=== PATIENT | female | born 1985 | race Caucasian/White ===

== ENCOUNTER → 2016-07-13 | Day surgery (SDC) | payer BC ==
[2016-07-07 08:26] VITALS: Ht 157.5 cm; Wt 68.2 kg
[~2016-07-13] VITALS: Ht 157.5 cm; Wt 68.2 kg
[~2016-07-13] MED LIST: ATROPINE SULFATE 0.1 MG/ML 5ML SYR IV PRN; BCPILLS PO; BUPIVACAINE/EPINEPHRINE 0.25% 1:200,000 30 ML VIAL ONE; CEFAZOLIN 2000 MG/60 ML D5W IV SCH; DEXAMETHASONE SOD INJ 4 MG/ML VIAL ONE; EpHEDrine SULFATE INJ 50 MG/ML AMP IV PRN; FENTANYL CITRATE INJ 50 MCG/1 ML 2 ML VIAL IV PRN; FENTANYL CITRATE INJ 50 MCG/1 ML 2 ML VIAL ONE; HYDR-5688 PO; HYDROCODONE/ACETAMOPHEN 5/325MG TAB PO PRN; LACTATED RINGER'S 1000ML 1,000 ML IV SCH; LIDOCAINE HCL 2% 2 ML VIAL (20MG/ML) ONE; LORA-741 PO; MIDAZOLAM HCL 1 MG/ML 2ML VIAL ONE; ONDANSETRON INJ 2 MG/ML 2 ML VIAL IV PRN; ONDANSETRON INJ 2 MG/ML 2 ML VIAL ONE; PROPOFOL IV EMULSION 10 MG/ML 20 ML VIAL IV ONE; SODIUM CHLORIDE 0.9% 1000ML 1,000 ML IV SCH
--- NOTE | 2016-07-13 07:47 | History & Physical Bridge - [place] ---
H&P Re-Evaluation Bridge Note: I have examined the patient, reviewed the History & Physical and in the interval since the performance of the History & Physical I have noted the following changes of clinical significance: No changes noted
--- NOTE | 2016-07-13 08:35 | Discharge Instructions-SurgCtr ---
Discharge Instructions Visit Reason for Visit: Left Cubital Tunnel Syndrome Discharge Discharge Diagnosis / Problem: SAME ABOVE Discharge Goals Goal(s): Decrease discomfort, Improve function Activity Recommendations Activity Limitations: as noted below Lifting Limitations: until after follow-up appointment Exercise/Sports Limitations: until after follow-up appointment Shower/Bathe: tomorrow Driving or Machine Use: resume 1 day after discharge Anesthesia . Post Anesthesia Instructions: If you have had General Anesthesia or IV Sedation: * Do not drive today. * Resume driving when surgeon permits. * Do not make important decisions or sign legal documents today. * Call surgeon for: 1. Temperature elevations greater than 101 degrees F. 2. Uncontrollable pain. 3. Excessive bleeding. 4. Persistent nausea and vomiting. 5. Medication intolerance (nausea, vomiting or rash). * For nausea and vomiting use only clear liquids such as: tea, soda, bouillon until nausea subsides, then gradually increase diet as tolerated. * If you have any concerns or questions, call your surgeon's office. If physician is unavailable and it is an emergency, call 911 or go to the nearest emergency room. . Instructions / Follow-Up Instructions / Follow-Up MEDICATIONS: * Resume previous medications unless instructed otherwise by your surgeon. * Always take pain medication on a full stomach or with food to avoid upset stomach. * Do not drink alcohol or drive while taking narcotics. * Ibuprofen or Tylenol may be taken if narcotic not needed. SPECIAL CARE INSTRUCTIONS: __ None _X_ Keep extremity elevated and iced x 48 hours; apply ice 20-30 minutes 8-10 times/day. May remove at night. __ Sling __24 hrs/day __ Remove at night __ Shoulder Immobilizer __ 24 hrs/day __ Remove at night _X_ Dressing __ Maintain until seen in office, may shower with plastic over site _X_ Remove dressings in 24-48 hours and then may shower _X_ Cover incisions with band-aids after showering __ Do not remove steri-strips Call physician if chills or temperature rises above 102 degrees or pain unrelieved by prescribed pain medications at . . Diet Recommendations Home Diet: no limitations Fluid Restriction: None Procedures Procedures Performed: Left Cubital Tunnel Release Pending Studies Studies pending at discharge: no Work Instructions Return To Work: after follow-up (OR SOONER IF NOT REQUIRED TO LIFT) Lifting Limitations: no more than 10 pounds (LIMITED LIFTING WITH LEFT ARM ) Medical Emergencies . Who to Call and When: Medical Emergencies: If at any time you feel your situation is an emergency, please call 911 immediately. . Non-Emergent Contact Non-Emergency issues call your: Primary Care Provider Call Non-Emergent contact if: you have a fever, temperature is above 101.5 . . "Provider Documentation" section prepared by Kenny Landis.
--- NOTE | 2016-07-13 08:42 | [facility] Post Operative Brief Note ---
Immediate Operative Summary Operative Date Jul 13, 2016. Pre-Operative Diagnosis Left Cubital Tunnel Syndrome Post-Operative Diagnosis Same Procedure(s) Performed Left Cubital Tunnel Release Surgeon Dr. Sunny Singletary Motorcycle Riding Instructor Surgeon(s) Suzette Landis PA-C Estimated Blood Loss 5 cc Findings as above Specimens None Complication(s) None Disposition Recovery Room / PACU
--- NOTE | 2016-07-13 08:48 | OPERATIVE REPORT ---
DATE OF OPERATION: 07/13/2016 PREOPERATIVE DIAGNOSIS: Cubital tunnel syndrome of the left elbow. POSTOPERATIVE DIAGNOSIS: Same. PROCEDURE: Open cubital tunnel release in situ. SURGEON: Dr. Gagan Singletary. ANILINE PRESS WORKER: Adalberto Landis PA-C, whose assistance was necessary for helping with retraction. ANESTHESIA: General. COMPLICATION: None. CONDITION: Stable to PACU. INDICATIONS: Lilli is a pleasant 30-year-old female who presented to my office with increasing paresthesias in the ulnar nerve distribution of her left hand. It got to the point where the paresthesias were constant. EMG study showed cubital tunnel syndrome of the left elbow. After failing conservative treatment, she elected to undergo open release in situ. On 07/13/2016, she arrived at [facility] for the above procedure. She was seen in the preoperative holding area and the operative extremity was identified and signed. She was given a preoperative antibiotic, taken back to the operating room, laid on the table in supine position and put under general anesthesia. Her left elbow was prepped and draped in sterile fashion. Timeout was done, and the patient and operative extremity was properly identified. A curvilinear incision was made directly over the cubital tunnel. Dissection was taken down through the fascia and Hunter's fascia was exposed. Tenotomy scissors were then used to do a complete release of the fascia proximally and distally through the flexor pronator mass. Complete resection was checked both proximally and distally. There was a rather large motor branch of the ulnar nerve extending into the ulnaris. After flexion of the elbow, the nerve did not subluxate past the medial epicondyle. The wound was then irrigated and injected with 20 mL of Marcaine with epinephrine. The tourniquet was deflated. Hemostasis was easily controlled. The wound was then closed with 3-0 Vicryl and a 4-0 nylon mattress suture. She was then placed in a soft dressing and taken to the postanesthesia care unit in stable condition. She tolerated the procedure well. I attest to the content of the Intraoperative Record and any orders documented therein. Any exceptio ns are noted below.
--- NOTE | 2016-07-13 09:00 | Anesthesia Progress Nt - [facility] ---
Anesthesia Post Op Note Date & Time Jul 13, 2016 at 09:00 Vital Signs Pain Intensity: 0 Vital Signs Past 12 Hours Date Time Temp Pulse Resp B/P Pulse Ox O2 Delivery O2 Flow Rate FiO2 07/13/16 08:32 36.4 71 16 107/51 98 Diffusion Mask 8 07/13/16 07:39 36.8 75 16 130/76 98 Room Air Notes Mental Status: alert / awake / arousable, participated in evaluation Pt Amnestic to Procedure: Yes Nausea / Vomiting: adequately controlled Pain: adequately controlled Airway Patency, RR, SpO2: stable & adequate BP & HR: stable & adequate Hydration State: stable & adequate Anesthetic Complications: no major complications apparent
[2016-07-13 09:58] VITALS: BP 116/76; PULSE 80; TEMP 36.7; O2SAT 98
== END | disposition home or self-care (01) ==
LOC: X.SURG 07:32
PROVIDERS: ATTEND Orthopaedic Surgery
DX: G56.22 Lesion of ulnar nerve, left upper limb (principal); E78.5 Hyperlipidemia, unspecified; Z98.890 Other specified postprocedural states; Z80.8 Family history of malignant neoplasm of other organs or systems

== ENCOUNTER → 2016-08-29 | Outpatient (CLI) | payer BC ==
[~2016-08-29] MED LIST changes: -ATROPINE SULFATE 0.1 MG/ML 5ML SYR IV PRN; -BUPIVACAINE/EPINEPHRINE 0.25% 1:200,000 30 ML VIAL ONE; -CEFAZOLIN 2000 MG/60 ML D5W IV SCH; -DEXAMETHASONE SOD INJ 4 MG/ML VIAL ONE; -EpHEDrine SULFATE INJ 50 MG/ML AMP IV PRN; -FENTANYL CITRATE INJ 50 MCG/1 ML 2 ML VIAL IV PRN; -FENTANYL CITRATE INJ 50 MCG/1 ML 2 ML VIAL ONE; -HYDROCODONE/ACETAMOPHEN 5/325MG TAB PO PRN; -LACTATED RINGER'S 1000ML 1,000 ML IV SCH; -LIDOCAINE HCL 2% 2 ML VIAL (20MG/ML) ONE; -MIDAZOLAM HCL 1 MG/ML 2ML VIAL ONE; -ONDANSETRON INJ 2 MG/ML 2 ML VIAL IV PRN; -ONDANSETRON INJ 2 MG/ML 2 ML VIAL ONE; -PROPOFOL IV EMULSION 10 MG/ML 20 ML VIAL IV ONE; -SODIUM CHLORIDE 0.9% 1000ML 1,000 ML IV SCH
== END | disposition home or self-care (01) ==
LOC: C.PAPS 09:59
PROVIDERS: ATTEND Physician Assistant
DX: Z01.419 Encounter for gynecological examination (general) (routine) without abnormal findings (principal)

== ENCOUNTER → 2017-01-01 | Outpatient (CLI) | payer BC ==
--- NOTE | 2017-01-01 10:11 | DIAGNOSTIC IMAGING REPORT ---
CHEST 2 VIEWS ROUTINE CLINICAL HISTORY: 31 years-old Female presenting with COUGH. TECHNIQUE: PA and lateral views of the chest were obtained. COMPARISON: None. FINDINGS: Cardiomediastinal silhouette normal. Lungs and pleural spaces clear. Osseous structures and upper abdomen normal. IMPRESSION: 1. No acute cardiopulmonary disease. Electronically signed by: Luis Felipe Cole M.D. 01/01/2017 10:10 AM Dictated Date/Time: 01/01/2017 10:09 AM
== END | disposition home or self-care (01) ==
LOC: C.RAD1850 09:56
PROVIDERS: ATTEND Family Medicine Hospice and Palliative Medicine
DX: R05 Cough (principal)

== ENCOUNTER → 2017-02-07 | Outpatient (CLI) | payer BC ==
[~2017-02-07] MED LIST changes: -HYDR-5688 PO
[2017-02-07 18:20] LABS: URINE APPEARANCE CLEAR (CLEAR); URINE BILIRUBIN NEG (NEG); URINE COLOR YELLOW; URINE NITRITE NEG (NEG); URINE PH 5.5 (4.5-7.5); URINE SPECIFIC GRAVITY 1.013 (1.000-1.030); UROBILINOGEN NEG (NEG)
[2017-02-07 18:22] LABS: MANUAL MICROSCOPIC REQUIRED? NO; REVIEW REQ? NO
[2017-02-10 11:12] LABS: CHLAMYDIA TRACH RNA*** NOT DETECTED (NOT DETECTED); GC (NEIS GONORRHOEAE)RNA** NOT DETECTED (NOT DETECTED)
== END | disposition home or self-care (01) ==
LOC: C.LABSPEC 11:19
PROVIDERS: ATTEND Obstetrics & Gynecology
DX: Z34.81 Encounter for supervision of other normal pregnancy, first trimester (principal)

== ENCOUNTER → 2017-02-26 | Outpatient (CLI) | payer BC ==
[2017-02-26 16:06] LABS: BASO % 0.2 %; BASO ABS # 0.02 K/uL (0-0.2); COMPLETE YES; HEMATOCRIT 37.2 % (37-47); IG% 0.3 %; LYMPH % 17.8 %; LYMPH ABS # 1.62 K/uL (1.2-3.4); MEAN CELL VOLUME 87.9 fL (80-100); MEAN CORPUSCULAR HEMOGLOBIN 30.7 pg (25-34); MEAN CORPUSCULAR HGB CONC 34.9 g/dl (32-36); MEAN PLATELET VOLUME 9.4 fL (7.4-10.4); MONO % 6.9 %; NEUT % 71.8 %; PLATELET COUNT 251 K/uL (130-400); RED BLOOD COUNT 4.23 M/uL (4.2-5.4); WHITE BLOOD COUNT 9.11 K/uL (4.8-10.8)
== END | disposition home or self-care (01) ==
LOC: C.LAB1850 14:37
PROVIDERS: ATTEND Obstetrics & Gynecology
DX: Z34.81 Encounter for supervision of other normal pregnancy, first trimester (principal)

== ENCOUNTER → 2017-03-29 | Outpatient (CLI) | payer BC ==
[2017-03-29 12:15] LABS: GTGD 50 Grams
== END | disposition home or self-care (01) ==
LOC: C.LAB1850 10:37
PROVIDERS: ATTEND Obstetrics & Gynecology
DX: Z34.82 Encounter for supervision of other normal pregnancy, second trimester (principal); Z3A.00 Weeks of gestation of pregnancy not specified

== ENCOUNTER → 2017-06-21 | Outpatient (CLI) | payer OTHER ==
[2017-06-21 12:29] LABS: HEMATOCRIT 36.8 % (37-47); HEMOGLOBIN 12.3 g/dL (12.0-16.0)
== END | disposition home or self-care (01) ==
LOC: C.LAB1850 10:59
PROVIDERS: ATTEND Obstetrics & Gynecology
DX: Z34.82 Encounter for supervision of other normal pregnancy, second trimester (principal)

== ENCOUNTER → 2017-08-16 | Outpatient (CLI) | payer OTHER | END | disposition home or self-care (01) | LOC: C.LABSPEC 16:11 | PROVIDERS: ATTEND Obstetrics & Gynecology | DX: Z34.83 Encounter for supervision of other normal pregnancy, third trimester (principal) ==

== ENCOUNTER 2017-09-07 03:00 | Inpatient (IN) | payer OTHER ==
[2017-09-06 13:08] VITALS: BMI 35.0
--- NOTE | 2017-09-06 13:23 | HISTORY & PHYSICAL EXAMINATION ---
DATE OF ADMISSION: 09/07/2017 PRINCIPAL DIAGNOSES: Intrauterine at 39 weeks and prior section x2. PRINCIPAL PROCEDURE: Repeat low transverse section. HISTORY OF PRESENT ILLNESS: The patient is a 32-year-old 3, para 2-0-0-2, white female, EDC of 09/12/2017, who presents for repeat section at 39 weeks. Her first section was done because of intolerance of labor. She had a repeat section in 2014, which was complicated by a hemorrhage, requiring a Bakri balloon. This has been relatively uncomplicated. She is now scheduled for a repeat section. She understands the risks of procedure and is willing to proceed. PAST MEDICAL HISTORY: Significant for a history of C. diff in the past. PAST SURGICAL HISTORY: Left arm surgery x2, wisdom teeth removed and section x2. ALLERGIES: She has no known drug allergies. MEDICATIONS: vitamins. OBSTETRICAL AND GYNECOLOGICAL HISTORY: Periods are every 28 days. Pap smears have been within normal limits. No history of PID, VD or herpes. In 2011, she had a primary section for delivery of an 8 pound 11 ounce viable female infant because of intolerance of labor. In 2014, she had a repeat section with delivery of a 9 pound 13 ounce viable female, which was complicated by the hemorrhaging, requiring a Bakri balloon. HISTORY: Blood type is A positive. Antibody screen is negative. Rubella is immune. RPR is nonreactive. HIV is negative. Hepatitis B is negative. One-hour Glucolas have been within normal limits. Chlamydia and GC are negative. Anatomy was complete and initial low lying placenta at 20 weeks resolved at 32 weeks. Hemoglobin at 28 weeks is 12.3 and hematocrit 36.8. GBS is negative. An anatomy scan was within normal limits. SOCIAL HISTORY: She does not smoke or drink. FAMILY HISTORY: Noncontributory. PHYSICAL EXAMINATION: VITAL SIGNS: Blood pressure is 100/60. GENERAL: She is a well-nourished and well developed white female in no apparent distress. LUNGS: Clear to auscultation. HEART: Regular rate and rhythm. No murmurs or gallops. ABDOMEN: Gravid and fundal height is measuring 37 cm. There is no hepatosplenomegaly or other masses palpable. She has a well-healed low transverse skin incision. EXTREMITIES: Without calf tenderness. There is trace edema present. ASSESSMENT: A 32-year-old with a prior section x2, now requesting repeat section at 39+ weeks. Please see the orders for further directions. We were well aware of the hemorrhage after her last delivery and will be prepared for this possibility with this section. PRAVEEN
[2017-09-06 14:58] LABS: BASO % 0.2 %; BASO ABS # 0.02 K/uL (0-0.2); EOS % 0.3 %; EOS ABS # 0.03 K/uL (0-0.5); HEMATOCRIT 35.1 % (37-47); HEMOGLOBIN 11.4 g/dL (12.0-16.0); IG# 0.13 K/uL (0.00-0.02); MEAN CELL VOLUME 77.8 fL (80-100); MEAN CORPUSCULAR HEMOGLOBIN 25.3 pg (25-34); MEAN CORPUSCULAR HGB CONC 32.5 g/dl (32-36); MEAN PLATELET VOLUME 9.1 fL (7.4-10.4); MONO % 6.5 %; MONO ABS # 0.69 K/uL (0.11-0.59); NEUT % 75.8 %; NEUT ABS # 8.04 K/uL (1.4-6.5); PLATELET COUNT 239 K/uL (130-400); RED CELL DISTRIBUTION WIDTH SD 42.6 fL (36.4-46.3); WHITE BLOOD COUNT 10.61 K/uL (4.8-10.8)
[~2017-09-07] VITALS: Ht 157.5 cm; Wt 86.3 kg
[2017-09-07] VITALS (11 sets, daily range): BP systolic 102–125; BP diastolic 66–79; PULSE 83–88; TEMP 36.8–37.5; O2SAT 97–100; Ht 157.5 cm; Wt 86.3 kg
[~2017-09-07 03:00] MED LIST changes: -BCPILLS PO; +PRENTAB26 PO
[2017-09-07] MEDS ORDERED: LACTATED RINGER'S 1000ML 1,000 ML IV SCH ×2 (05:45→06:00)
[2017-09-07] MEDS ORDERED: CITRIC ACID/SODIUM CITRATE 15 ML UDC PO ONE (05:45)
[2017-09-07] MEDS ORDERED: CEFAZOLIN IV 2,000 MG in SYRINGE 0 ML IV SCH (06:00)
[2017-09-07] MEDS ORDERED: CITRIC ACID/SODIUM CITRATE 15 ML UDC PO SCH (06:00)
[2017-09-07 06:23] LABS: BASO % 0.2 %; BASO ABS # 0.02 K/uL (0-0.2); EOS % 0.6 %; EOS ABS # 0.05 K/uL (0-0.5); HEMATOCRIT 34.6 % (37-47); HEMOGLOBIN 11.3 g/dL (12.0-16.0); IG# 0.11 K/uL (0.00-0.02); LYMPH % 18.8 %; LYMPH ABS # 1.68 K/uL (1.2-3.4); MEAN CELL VOLUME 77.8 fL (80-100); MEAN CORPUSCULAR HEMOGLOBIN 25.4 pg (25-34); MEAN PLATELET VOLUME 9.4 fL (7.4-10.4); MONO % 8.2 %; MONO ABS # 0.73 K/uL (0.11-0.59); NEUT ABS # 6.33 K/uL (1.4-6.5); NUCLEATED RED BLOOD CELL ABS 0.02 K/uL (0-0); PLATELET COUNT 236 K/uL (130-400); RED CELL DISTRIBUTION WIDTH CV 14.9 % (11.5-14.5); RED CELL DISTRIBUTION WIDTH SD 42.5 fL (36.4-46.3); WHITE BLOOD COUNT 8.92 K/uL (4.8-10.8)
[2017-09-07 06:28] LABS: MEAN CORPUSCULAR HGB CONC 32.7 g/dl (32-36)
[2017-09-07] MEDS ORDERED: LACTATED RINGER'S 1000ML 500 ML IV PRN (07:52)
[2017-09-07] MEDS ORDERED: NALOXONE HCL INJ 1 MG in SODIUM CHLORIDE 0.9% 1000ML 1,000 ML IV PRN (07:52)
[2017-09-07] MEDS ORDERED: SODIUM CHLORIDE 0.9% 1000ML 1,000 ML IV PRN (07:52)
[2017-09-07] MEDS ORDERED: NALOXONE HCL INJ 0.08 MG in SYRINGE 1.8 ML IV PRN (07:52)
[2017-09-07] MEDS ORDERED: OXYTOCIN INJ 10 UNITS/ML VIAL ONE ×3 (07:58→09:30)
[2017-09-07] MEDS ORDERED: MoRPHine SULFATE PF 1 MG/ML 10 ML AMP/VIAL ONE (07:59)
[2017-09-07] MEDS ORDERED: DiphenhydrAMINE HCL 50 MG/ML VIAL IV PRN (08:00)
[2017-09-07] MEDS ORDERED: EpHEDrine SULFATE INJ 50 MG/ML AMP IV PRN (08:00)
[2017-09-07] MEDS ORDERED: ONDANSETRON INJ 2 MG/ML 2 ML VIAL IV PRN (08:00)
[2017-09-07] MEDS ORDERED: MoRPHine SULFATE PF 1 MG/ML 10 ML AMP/VIAL EPI PRN (08:00)
[2017-09-07] MEDS ORDERED: NO NARCOTICS OR SEDATIVES SCH (08:00)
[2017-09-07] MEDS ORDERED: MoRPHine SULFATE 2 MG/ML CARP IV PRN (08:00)
[2017-09-07] MEDS ORDERED: DC INTRASPINAL MORPHINE SCH (08:00)
[2017-09-07] MEDS ORDERED: NALOXONE HCL 0.4 MG/1 ML VIAL/CARP IV PRN (08:00)
[2017-09-07] MEDS ORDERED: KETOROLAC TROMETHAMINE 30 MG/ML VIAL IV. PRN (08:00)
[2017-09-07] MEDS ORDERED: NALBUPHINE HCL INJ 10 MG/ML AMP IV PRN (08:00)
[2017-09-07] MEDS ORDERED: MIDAZOLAM HCL 1 MG/ML 2ML VIAL ONE (08:49)
[2017-09-07] MEDS ORDERED: OXYTOCIN INJ 10 UNITS/ML VIAL IM ONE (08:57)
[2017-09-07] MEDS ORDERED: LANOLIN OINT EXT PRN (09:30)
[2017-09-07] MEDS ORDERED: KETOROLAC TROMETHAMINE 30 MG/ML VIAL ONE (09:30)
[2017-09-07] MEDS ORDERED: DC PCA PRN (09:30)
--- NOTE | 2017-09-07 09:38 | [facility] Post Operative Brief Note ---
Immediate Operative Summary Operative Date Sep 07, 2017. Pre-Operative Diagnosis IUP at 39 weeks prior C/S x2 transverse lie Post-Operative Diagnosis Same Procedure(s) Performed Lower Uterine Transverse Repeat Caesarean Section for the of a live female infant at [address]. Surgeon Dr[address] Staci Gonzalez Computer Designer Surgeon(s) Dr. Patricio Estimated Blood Loss 800CC Findings Consistent with Post-Op Diagnosis Fluids (cc crystalloids) 1100 Specimens Placenta: Hold Cord blood obtained Drains Mccullough to straight drainage- clear urine at end of case Anesthesia Type Spinal Complication(s) none Disposition Accompanied Pt To Recover: yes Disposition: L&D
--- NOTE | 2017-09-07 09:49 | Anesthesiology Progress Note ---
Anesthesia Post Op Note Date & Time Sep 07, 2017 at 09:49 Notes Mental Status: alert / awake / arousable, participated in evaluation Pt Amnestic to Procedure: Yes Nausea / Vomiting: adequately controlled Pain: adequately controlled Airway Patency, RR, SpO2: stable & adequate BP & HR: stable & adequate Hydration State: stable & adequate Anesthetic Complications: no major complications apparent
[2017-09-07] MEDS ORDERED: OXYTOCIN INJ 20 UNITS in LACTATED RINGER'S 1000ML 1,000 ML IV SCH (10:00)
--- NOTE | 2017-09-07 10:24 | OPERATIVE REPORT ---
DATE OF OPERATION: 09/07/2017 PREOPERATIVE DIAGNOSIS: Intrauterine at 39 weeks, prior section x2, and transverse lie. POSTOPERATIVE DIAGNOSIS: Same plus delivery of a viable female infant, 8 pounds 1 ounce. PROCEDURE: Repeat low transverse section. SURGEON: Dr. Natalie Cordova. MANAGING COGNITIVE ENGINEER: Dr. Erika Patricio, PGY1. ESTIMATED BLOOD LOSS: 800 mL ANESTHESIA: Subarachnoid block HISTORY: The patient is a 32-year-old 3, para 2-0-0-2 white female, EDC of 09/12/2017, who presents for repeat section at 39 weeks. First section was done because of intolerance of labor. Her repeat section was done electively. She did have a significant bleed following her second . She is now scheduled for a repeat section. She understands the risks of procedure and is willing to proceed. GROSS FINDINGS: Uterus is gravid and consistent with a term and size. The heart-shaped nature of the uterus was again noted. Otherwise, bilateral ovaries and fallopian tubes are grossly normal. There is minimal scar tissue present upon entering the abdomen and minimal scar tissue involving the bladder flap. PROCEDURE IN DETAIL: After the patient received adequate subarachnoid block, she was prepped and draped in usual sterile fashion. Incision was made on her prior scar and carried to the fascia with the same scalpel. The fascial incision was then extended with Gee scissors. The edges were grasped with Dejuan clamps and the underlying rectus muscles bluntly and sharply dissected off the overlying fascia. The rectus muscles were bluntly divided in the midline and the underlying peritoneum elevated and entered bluntly. The bladder was then taken down off the anterior surface of the uterus. The uterine segment was thin and was entered with the scalpel and extended transversely. Clear fluid was obtained when rupturing the membranes. The was delivered from the levi breech presentation with moderate fundal pressure. Mouth and nasopharynx were suctioned on the field and cord was clamped and cut. There was vigorous crying and the was moving all 4 limbs upon delivery. The placenta was then expressed intact with a 3-vessel cord. The uterus was then exteriorized and covered with a clean lap sponge. The uterine cavity was then explored and found to be free of any placental tissue or membranes. The uterus was then closed in 2 layers in a running locking imbricating fashion with 0 Monocryl. Bleeding along the edges of the incision was secured with the Bovie. Hemostasis was then noted to be excellent. The posterior cul-de-sac was then irrigated with normal saline. The uterine incision was examined once more and continued to have excellent hemostasis. The gutters were explored and found to be free of any clot or fluid. The rectus muscles were then brought together on the midline with a running stitch of 0 Monocryl. Fascia was then closed in a running fashion with 0 Vicryl. The adipose layer was then irrigated with normal saline and the skin edges were reapproximated using 4-0 Vicryl in a subcuticular manner. Urine was clear at the end of the case. Mother and infant were doing well postoperatively. I attest to the content of the Intraoperative Record and any orders documented therein. Any exception s are noted below.
[2017-09-07] MEDS: SIMETHICONE 80 MG CHEW PO SCH ×3 (13:00→19:55)
[2017-09-07] MEDS: DOCUSATE SODIUM 100 MG CAP PO SCH (19:55)
[2017-09-08 00:20] VITALS: O2SAT 97
[2017-09-08] MEDS ORDERED: ONDANSETRON INJ 2 MG/ML 2 ML VIAL IV PRN (00:30)
[2017-09-08] MEDS ORDERED: DiphenhydrAMINE HCL 50 MG/ML VIAL IV PRN (00:30)
[2017-09-08] MEDS ORDERED: OXYCODONE/ACETAMINOPHEN 5-325 TAB PO PRN (00:30)
[2017-09-08] MEDS ORDERED: PROMETHAZINE HCL INJ 25 MG in SODIUM CHLORIDE 0.9% 50ML 50 ML IV PRN (00:30)
[2017-09-08] MEDS: IBUPROFEN 600 MG TAB PO PRN ×4 (00:53→20:02)
[2017-09-08] MEDS: OXYCODONE/ACETAMINOPHEN 5-325 TAB PO PRN ×4 (00:53→20:04)
[2017-09-08 02:41] VITALS: O2SAT 97
[2017-09-08 03:30] VITALS: BP 125/69; PULSE 76; TEMP 37.1; O2SAT 97
--- NOTE | 2017-09-08 06:58 | Progress Note ---
Subjective Sep 08, 2017. Subjective conversation w/ patient, physical exam Ambulation: limited ambulation Voiding: no voiding problems (had harden out this am; no voiding on her own yet) Passing Gas: No Diet Tolerance: Regular Diet Lochia: Moderate Feeding Type: Breast Feeding Pain: Minimal pain reported Comment: Seen and assessed at bedside; no acute events overnight Review of Systems Constitutional: No fever, No chills Respiratory: No cough, No shortness of breath Cardiac: + edema, No chest pain Abdomen: No nausea, No vomiting no headaches or calf pain Objective Vital Signs Date Time Temp Pulse Resp B/P (MAP) Pulse Ox O2 Delivery O2 Flow Rate FiO2 09/08/17 03:30 37.1 76 20 125/69 (87) 97 Room Air 09/08/17 00:20 20 97 09/07/17 23:30 36.8 83 20 102/66 (78) 98 Room Air 09/07/17 23:30 97 Room Air 09/07/17 23:20 20 97 09/07/17 22:20 16 98 09/07/17 21:20 14 99 09/07/17 20:20 16 99 09/07/17 19:35 37.1 88 18 124/77 (93) 99 Room Air 09/07/17 19:20 18 99 09/07/17 18:20 18 100 09/07/17 17:20 16 100 09/07/17 16:20 37.5 84 16 125/79 (94) 100 Room Air 09/07/17 16:20 100 Room Air 09/07/17 16:20 16 100 09/07/17 15:20 18 99 09/07/17 10:24 Room Air Physical Exam General Appearance: WELL-APPEARING, NO APPARENT DISTRESS Respiratory/Chest: chest non-tender, lungs clear, normal breath sounds Cardiovascular: regular rate, rhythm, no murmur Abdomen: normal bowel sounds, non tender, soft Fundus: Firm, Non-Tender, Relation to Umbilicus (at umbilicus) Incision Description: Clean, Dry & Intact Extremities: normal range of motion, non-tender, normal inspection, no calf tenderness, + pedal edema (1+ bilat) Laboratory Results Last 24 Hours Test 09/07/17 17:20 09/08/17 06:00 Hepatitis C Antibody NEG HIV (1&2) Ab and P24 Ag, 4th Gener NEG Medications Current Inpatient Medications Medications (Trade) Dose Ordered Sig/Ace Route Start Time Stop Time Status Last Admin Dose Admin Oxycodone/ Acetaminophen (Percocet 5-325mg Tab) 1 tab Q4H PRN PO 09/08/17 00:30 09/22/17 00:29 09/08/17 00:53 1 TAB Oxycodone/ Acetaminophen (Percocet 5-325mg Tab) 2 tab Q4H PRN PO 09/08/17 00:30 09/22/17 00:29 Ibuprofen (Motrin Tab) 600 mg Q4H PRN PO 09/07/17 09:30 10/07/17 09:29 09/08/17 00:53 600 MG Promethazine HCl 25 mg/Sodium Chloride 51 ml @ 204 mls/hr Q4H PRN IV 09/08/17 00:30 10/08/17 00:29 Ondansetron HCl (Zofran Inj) 4 mg Q4H PRN IV 09/08/17 00:30 10/08/17 00:29 Prenat Multivit/ [place]/Iron/Folic Ac ( Vitamin Tab) 1 tab DAILY PO 09/08/17 08:00 10/08/17 07:59 Docusate Sodium (coLACE CAP) 100 mg BID PO 09/07/17 20:00 10/07/17 19:59 09/07/17 19:55 100 MG Ferrous Sulfate (Feosol Tab) 325 mg DAILY PO 09/08/17 08:00 10/08/17 07:59 Lanolin (Lanolin Oint) PRN PRN EXT 09/07/17 09:30 10/07/17 09:29 Simethicone (Mylicon Chew Tab) 80 mg QID PO 09/07/17 13:00 10/07/17 12:59 09/07/17 19:55 80 MG Diphenhydramine HCl (Benadryl Cap) 25 mg QID PRN PO 09/08/17 00:30 10/08/17 00:29 Diphenhydramine HCl (Benadryl Inj) 25 mg QID PRN IV 09/08/17 00:30 10/08/17 00:29 Assessment and Plan Post-Op Day#: 1 Continue Routine Care: 32yo F POD 1 s/p CS Pt doing well clinically Continue routine care work on ambulation, voiding, breast feeding, pain control, advancing diet today Resident Physician Supervision Note: I interviewed and examined the patient. Discussed with Dr. Patricio and agree with findings and plan as documented in the note. Any exceptions or clarifications are listed here: Dressing removed, incision intact, ambulate Documented By: Inderjit Haas Resident Tracking Resident Involvement: Resident Care Provided Care Provided: OB Delivery
[2017-09-08 07:45] LABS: BASO % 0.6 %; BASO ABS # 0.05 K/uL (0-0.2); EOS % 1.1 %; HEMATOCRIT 30.9 % (37-47); HEMOGLOBIN 9.6 g/dL (12.0-16.0); LYMPH % 18.3 %; LYMPH ABS # 1.65 K/uL (1.2-3.4); MEAN CELL VOLUME 80.3 fL (80-100); MEAN CORPUSCULAR HEMOGLOBIN 24.9 pg (25-34); MEAN CORPUSCULAR HGB CONC 31.1 g/dl (32-36); MEAN PLATELET VOLUME 9.2 fL (7.4-10.4); MONO % 8.5 %; MONO ABS # 0.77 K/uL (0.11-0.59); NEUT % 70.4 %; NEUT ABS # 6.34 K/uL (1.4-6.5); PLATELET COUNT 174 K/uL (130-400); RED CELL DISTRIBUTION WIDTH CV 15.4 % (11.5-14.5); RED CELL DISTRIBUTION WIDTH SD 45.2 fL (36.4-46.3); WHITE BLOOD COUNT 9.01 K/uL (4.8-10.8)
[2017-09-08 07:50] VITALS: BP 125/81; PULSE 92; TEMP 37.1
[2017-09-08] MEDS: DOCUSATE SODIUM 100 MG CAP PO SCH ×2 (07:54→19:57)
[2017-09-08] MEDS: FERROUS SULFATE 325 MG TAB PO SCH (07:55)
[2017-09-08] MEDS: SIMETHICONE 80 MG CHEW PO SCH ×4 (07:55→19:57)
[2017-09-08] MEDS ORDERED: PRENATAL VITAMIN TAB PO SCH (08:00)
[2017-09-08] MEDS ORDERED: MULTIVITAMIN TAB PO ONE (08:10)
[2017-09-08] MEDS ORDERED: MTR600X PO (14:39)
[2017-09-08] MEDS ORDERED: OXYC-57 PO (14:39)
--- NOTE | 2017-09-08 14:40 | Discharge Instructions ---
Discharge Instructions Date of Service Sep 08, 2017. Admission Reason for Admission: - Low Lying Placenta Discharge Discharge Diagnosis / Problem: recovery from Discharge Goals Goal(s): Routine recovery after Medications Continue Dispensed Medications: lansinoh Activity Recommendations Activity Limitations: per Instructions/Follow-up section . Instructions / Follow-Up Instructions / Follow-Up ACTIVITY RECOMMENDATIONS: * Gradual return to full activity over the next 2-3 weeks. * No lifting - nothing heavier than baby over the next 2-3 weeks. * Do not engage in vigorous exercise, sexual activity or sports until cleared by your physician. * Do not drive or operate any motorized equipment until cleared by your physician. * You may shower/bathe daily. MEDICATIONS: For discomfort or pain, you may use Acetaminophen (Tylenol), Ibuprofen (Advil), or Naproxen (Aleve) following the package directions. For constipation you may use Colace following the package directions. BREAST CARE: If you are not breast feeding: * Wear a supportive bra 24 hours a day for one to two weeks. * Avoid stimulating your breasts and nipples as much as possible during the first few weeks after delivery. * When taking a shower, have the warm water hit your back, not breasts. * When your breasts feel full, apply ice packs. Usually three to four times a day helps ease the discomfort. * Take a mild pain medication (Tylenol / Motrin) when you are uncomfortable. If breast feeding: * Use breast milk to lubricate nipples. Lansinoh cream may be used for sore nipples. You do not need to remove cream prior to breast feeding. If using a different brand of cream, check the label for directions regarding removal of cream prior to nursing. * Wear a supportive bra. * If having problems with breasts or breast feeding, call a technical support consultant or your health care provider. SPECIAL CARE INSTRUCTIONS: When you are discharged from the hospital, it is important for you to follow the instructions listed below: * During the first week at home, you should be able to care for yourself and your baby. In addition, the usual light household activities are encouraged. * Limit your activities to the way you feel. Do not try to clean the house or move furniture. Be sensible. * If you actively engage in sports and have done so up until the time of your delivery, you may resume these activities as soon as you feel able. This may take up to one month or even longer. Use good judgment. * Continue to take your vitamins for at least six weeks after the of your baby. * Your diet need not be limited unless you were on a special diet before your delivery. Breast-feeding mothers need around 2500 calories per day and at least 64-80 ounces of fluid per day (8 to 10 glasses). * You should eat foods from the four major food groups. Crash diets or fad diets are to be avoided. Eating lean meats, fresh fruits and vegetables, low-fat dairy products, high fiber foods and a regular exercise program, will help you get back to your pre- weight without putting your health at risk. * Constipation is sometimes a problem after delivery. Take a mild laxative as needed. If breast feeding, Milk of Magnesia is acceptable to use. You may use a suppository or Fleets enema. * A daily shower or tub bath is suggested. Wash incision daily with warm soapy water and pat dry. It doesn't need to be covered unless drainage is present. * A bloody vaginal discharge will usually continue until around four weeks . A small amount of bleeding may continue for as long as six weeks. Vaginal discharge changes from the bright red bleeding after delivery to pink then brownish and finally yellowish-pink before becoming white and disappearing. * Bleeding may increase with activity. Your first period may come in 4-8 weeks. If you are breast feeding, your period may be delayed even longer. * [place] (sex) can begin whenever both you and your partner feel comfortable and do not have any form of genital infection. It is recommended that you wait at least six weeks for internal and external healing to occur. If you have questions, please talk to your health care practitioner. A condom should be used to prevent infection and . * Foreplay, gentle intercourse and lubrication is very important the first several times to prevent pain. A water-based lubricant such as K-Y jelly or Astroglide may be used. * If you have RH negative blood and your baby is RH positive, you will receive RHOGAM by injection prior to discharge. The nurse will give you a card to keep with you that has the date and place that you received RHOGAM after delivery. * During your care, you had a Rubella screen done to check for the presence of rubella antibodies in your blood. If your test was negative, you will receive a Rubella vaccine prior to discharge. This vaccine may cause a fever, soreness at the injection site and flu-like symptoms. If these symptoms persist, notify your health care practitioner. is not advised for one month after a Rubella vaccine. * Verbalizes understanding of car seat law as reviewed with patient nursing. * Car Seat hand-out given and reviewed with patient by nursing. * Shaken baby information reviewed with patient by nursing. Call you doctor if: * Heavy bleeding (saturating several pads an hour) or passing clots the size of your fist. * A fever >101 degrees F (38.3 degrees C) on two occasions four hours apart and /or chills. * Unusual pain in the pelvic or vaginal areas. * Call the doctor for any increased redness, drainage or swelling around the incision and any pain unrelieved by prescribed pain medication. * "Baby Blues" lasting longer than two weeks. If you have any questions or concerns, call your health care practitioner at . FOLLOW UP VISIT: * Please call the office at to schedule a 6 week examination. It is important you keep this appointment. It is important for you to make arrangements for either yearly or twice yearly check-ups thereafter. Current Hospital Diet Patient's current hospital diet: Regular OB Diet Discharge Diet Recommended Diet: Regular OB Diet Procedures Procedures Performed: Lower Uterine Transverse Repeat Caesarean Section for the of a live female infant at 0854. Pending Studies Studies pending at discharge: no Medical Emergencies . Who to Call and When: Medical Emergencies: If at any time you feel your situation is an emergency, please call [phone] immediately. . Non-Emergent Contact Non-Emergency issues call your: Biological Photographer . . "Provider Documentation" section prepared by Natalie Lopez . [place] Drug Monitoring Program Search Results: patient reviewed within database, no issues identified
[2017-09-08 16:20] VITALS: BP 117/72; PULSE 85; TEMP 37.2
[2017-09-08] MEDS ORDERED: OXYTOCIN 30 UNITS/500ML NSS IV ONE (18:26)
[2017-09-09 00:05] VITALS: BP 103/67; PULSE 76; TEMP 36.6
[2017-09-09] MEDS: OXYCODONE/ACETAMINOPHEN 5-325 TAB PO PRN ×2 (01:36→07:27)
[2017-09-09] MEDS: IBUPROFEN 600 MG TAB PO PRN ×2 (01:37→07:28)
[2017-09-09 06:59] LABS: HEMATOCRIT 29.2 % (37-47); HEMOGLOBIN 9.1 g/dL (12.0-16.0)
[2017-09-09] MEDS: SIMETHICONE 80 MG CHEW PO SCH (07:22)
[2017-09-09 07:25] VITALS: BP 142/83; PULSE 97; TEMP 36.7; O2SAT 98
[2017-09-09] MEDS: DOCUSATE SODIUM 100 MG CAP PO SCH (07:26)
[2017-09-09] MEDS: FERROUS SULFATE 325 MG TAB PO SCH (07:27)
[2017-09-09] MEDS ORDERED: MULTIVITAMIN TAB PO SCH (08:00)
--- NOTE | 2017-09-09 08:40 | Progress Note ---
Subjective Sep 09, 2017. Subjective conversation w/ patient, physical exam Ambulation: ambulating normally Voiding: no voiding problems (had harden out this am; no voiding on her own yet) Passing Gas: Yes Diet Tolerance: Regular Diet Lochia: Small Feeding Type: Breast Feeding Review of Systems Constitutional: No fever, No chills, No sweats, No weight loss, No weakness, No fatigue, No problem reported Breast: No see HPI, No breast lump, No change in shape, No nipple discharge, No breast pain, No problem reported Abdomen: No pain, No nausea, No vomiting, No diarrhea, No constipation, No GI bleeding, No problem reported Female : No see HPI, No dysuria, No urinary frequency, No hematuria, No incontinence, No abnormal vaginal bleeding, No vaginal discharge, No problem reported Objective Vital Signs Date Time Temp Pulse Resp B/P (MAP) Pulse Ox O2 Delivery O2 Flow Rate FiO2 09/09/17 07:25 36.7 97 16 142/83 (102) 98 Room Air 09/09/17 00:05 36.6 76 16 103/67 (79) Room Air 09/09/17 00:05 Room Air 09/08/17 21:30 Room Air 09/08/17 16:20 Room Air 09/08/17 16:20 37.2 85 16 117/72 (87) Room Air Physical Exam General Appearance: WELL-APPEARING, NO APPARENT DISTRESS Abdomen: non tender, soft Fundus: Firm, Non-Tender, Relation to Umbilicus (2 below U) Incision Description: Clean, Dry & Intact Extremities: no calf tenderness Laboratory Results Last 24 Hours Test 09/09/17 06:37 Hemoglobin 9.1 g/dL Hematocrit 29.2 % Assessment and Plan Post-Op Day#: 2 Continue Routine Care: stable post-op & course discharge to home follow up in 6 weeks.
--- NOTE | 2017-09-09 10:00 | DISCHARGE SUMMARY ---
PRINCIPAL DIAGNOSES: Intrauterine at 39 weeks and prior section x2. PRINCIPAL PROCEDURE: Repeat low transverse section. HISTORY: The patient is a 32-year-old 3, para 2-0-0-2, white female, EDC of 09/12/2017, who presented for a repeat section. This was done without complications. The patient tolerated the procedure well. She had an uncomplicated postop course. She remained afebrile throughout her hospital stay. She was eating regular diet on her 1st postop day. Pain medications orally were working well. Hemoglobin on admission was 11.4 and hematocrit 35.1. First postop day hemoglobin of 9.6 and hematocrit 30.9. Second postop day hemoglobin 9.1 and hematocrit 29.2. She is being sent home with the usual and postop instructions. She is to call for a temperature of 101 degrees or higher, heavy vaginal bleeding, burning with urination, increased redness or drainage or pain in her incision, calf tenderness or any other concerns. She is being sent home with prescriptions for Percocet 1 or 2 tablets p.o. q. 4 hours p.r.n. pain and Motrin 600 mg p.o. q. 4 hours p.r.n. pain.
[2017-09-09 10:50] VITALS: BP_DIAS 83; PULSE 97; TEMP 36.7
== END 2017-09-09 11:35 | disposition home or self-care (01) | DRG 766 ==
LOC: C.LD 05:35 → EDSTATUS 07:30 → C.OBG 15:14
PROVIDERS: ADMIT Obstetrics & Gynecology; ATTEND Obstetrics & Gynecology
PROC: 10D00Z1 Extraction of Products of Conception, Low, Open Approach (ICD-10-PCS; principal; 2017-09-07 07:30)
DX: O34.211 Maternal care for low transverse scar from previous cesarean delivery (principal); O32.2XX0 Maternal care for transverse and oblique lie, not applicable or unspecified; Z37.0 Single live birth; Z3A.39 39 weeks gestation of pregnancy

== ENCOUNTER → 2017-09-12 | Outpatient (CLI) | payer OTHER ==
[~2017-09-12] MED LIST changes: -LORA-741 PO; +MTR600X PO; +OXYC-57 PO
--- NOTE | 2017-09-12 18:28 | DIAGNOSTIC IMAGING REPORT ---
ULTRASOUND RIGHT LOWER EXTREMITY VENOUS CLINICAL HISTORY: Right leg swelling. COMPARISON STUDY: No priors. TECHNIQUE: Real-time, grayscale, and color Doppler sonography of the deep veins of the right lower extremity was performed from the inguinal crease to the calf. Compression and augmentation were utilized. FINDINGS: There is no sonographic evidence of deep venous thrombosis identified in the right lower extremity. The common femoral, superficial femoral, and popliteal veins are patent and normally compressible. The greater saphenous vein and the profunda femoris vein at the junction with the common femoral vein are clear. The visualized calf veins are patent. IMPRESSION: There is no sonographic evidence of deep venous thrombosis identified in the right lower extremity. Electronically signed by: Mateusz Purvis M.D. 09/12/2017 6:27 PM Dictated Date/Time: 09/12/2017 6:26 PM
== END | disposition home or self-care (01) ==
LOC: C.ULTR 18:06
PROVIDERS: ATTEND Obstetrics & Gynecology
DX: M79.661 Pain in right lower leg (principal)

== ENCOUNTER 2019-03-03 05:39 | Inpatient (IN) ==
--- NOTE | 2019-02-17 13:16 | PAT Medication Instructions ---
Medication Instructions Date of Service February 17, 2019 Home Medications multivitamin 1 tab PO QAM ferrous sulfate 1 tab PO QAM DO NOT take the morning of surgery multivitamin 1 tab PO QAM ferrous sulfate 1 tab PO QAM Other Notes If you have any questions please call us at [phone] or [phone] or [phone] or [phone]
--- NOTE | 2019-02-18 10:44 | Anesthesiology Consultation ---
Date of Service February 18, 2019 Assessment & Plan (1) Encounter for pre-operative examination: - No preop labs: per OB, no preop labs to be done at [facility]* Chart Review Chart Review: Acceptable Risk for Surgery (pending labs AM DOS) and Patient seen in Pre Admission Testing History Surgery Operation Date: 03/03/19 07:30 Proposed Procedures p Section in LD with - Teresa Girard MD, FACOG s Post Tubal Ligation Labor & Delivery - Teresa Girard MD, FACOG Height/Weight Height: 5 ft 2 in Weight: 86.7 kg Allergies Allergy/AdvReac Type Severity Reaction Status Date / Time No Known Drug Allergies Allergy Verified 02/12/19 11:33 Medications Home Medications Medication Instructions Recorded Confirmed Last Taken multivitamin 1 tab PO QAM 09/01/18 02/12/19 01/20/19 ferrous sulfate 1 tab PO QAM 01/06/19 02/12/19 01/20/19 Past Medical History Medical History Anxiety Depression History of Clostridium difficile infection History of anemia no hx blood transfusions IBS (irritable bowel syndrome) Exercise / Class Metabolic Activity III < 4 Walking/Shop/Light housework Past Family History Family History Grandfather (Paternal) Family history of diabetes mellitus Aunt Family history of diabetes mellitus Grandmother (Paternal) Family history of diabetes mellitus Past Surgical History Surgical History History of arthroscopy of left shoulder History of section X3 (2011, 2014, 2017) History of colonoscopy History of incisional hernia repair X 2 History of wisdom tooth extraction Status post transposition of nerve LEFT ULNAR NERVE Past Anesthesia History No Family Hx of Anesthesia Complications and Other *c/s X3 (2011, 2014, 2017)- per patient she reports pain with spinal block placement. Also, she states that she "felt" practice cut and also throughout the procedure. She states this did not happen with prior c/s* c/s: 09/07/17: SAB x 1 at L3-L4 at [facility] c/s: 09/25/14: SAB x 1 at L3-L4 at [facility] c/s: 04/18/12: SAB at L3-L4 at [facility] History of PONV No Hx of PONV and No Hx of Motion Sickness Social History Smoking Status: Never smoker Do You Dip or Chew Tobacco: No Hx Alcohol Use: No Hx Substance Use: No substance use type: does not use Review of Systems related back pain and reflux. Patient denies chest pain, shortness of breath, cough, wheezing, palpitations. Physical Exam Vital Signs VITALS BP 113/74 P 103 TEMP 98.0 SP02 97%RA RESP 18 PHYSICAL Full neck and c-spine range of motion. Full TMJ range of motion. TMD 3.5 finger breaths Mallampati Score 4 Dentition: intact Lungs: clear throughout to auscultation Cardiac: regular rate and rhythm, no murmurs noted Spine: normal Extremities: no edema Testing Laboratory Results 12/19/18 H/H 10.2/32.0 Electrocardiogram Date: 10/19/18 Findings: + NSR @ (76)
--- NOTE | 2019-02-18 15:25 | History and Physical Report ---
DATE OF ADMISSION: 03/03/2019 ADMITTING DIAGNOSES: 1. Intrauterine at 39+ weeks. 2. History of previous section x3. 3. History of hemorrhage in the past requiring Bakri balloon. 4. Desires permanent surgical sterilization. 5. History of depression. HISTORY OF PRESENT ILLNESS: Lilli is a 33-year-old white female 4, para 3-0-0-3 with intrauterine at 39+ weeks who presents for repeat section and tubal ligation. This has been complicated with a positive Lyme antibody, for which she underwent treatment, diarrhea throughout the , has seen GI. She has a history of depression, for which she had been treated with Zoloft, but discontinued that at the beginning of this . PAST OBSTETRICAL AND GYNECOLOGICAL HISTORY: This is the patient's fourth . Her first was delivered in 04/2012 at 41 and 1/7 weeks for an 8 pound 11 ounce baby. It was a for intolerance of labor. The patient's second was performed in 07/2014, she had breech presentation, delivered a 9 pound 13 ounce baby. The patient had severe hemorrhage following that delivery requiring Bakri balloon, but did well and was eventually discharged. Her third , in 08/2017, she had a repeat section for breech delivering an 8 pound 1 ounce baby. There were no issues with that . This was conceived on oral contraceptives and she desires sterilization after this . ALLERGIES: No known drug allergies. MEDICATIONS: Multivitamin, probiotic and iron. PAST MEDICAL HISTORY: As noted above. PAST SURGICAL HISTORY: Significant for wisdom teeth, x3, incisional hernia repair x2, left arm surgery x2. SOCIAL HISTORY: The patient denies tobacco, alcohol or drug use. Lives with her spouse and 3 children. PHYSICAL EXAMINATION: GENERAL: This is a well-developed, well-nourished white female in no acute distress. VITAL SIGNS: Blood pressure 118/82, weight 190 pounds. NECK: Supple without thyromegaly or lymphadenopathy. CHEST: Clear to auscultation bilaterally. CARDIOVASCULAR: Regular rate and rhythm without murmurs, gallops or rubs. BACK: Without costovertebral angle tenderness. ABDOMEN: Gravid, soft and nontender. EXTREMITIES: Benign. LABORATORY DATA: Blood type A positive, antibody negative, Pap negative, rubella immune, RPR nonreactive, hepatitis B negative, HIV negative, Lyme antibody titer positive on 11/27. SMA and CF declined. Chlamydia and gonorrhea cultures negative. Low risk panorama and AFP declined. GTT x2 within normal limits. GBS negative. ASSESSMENT: Lilli is a 33-year-old 4, para 3-0-0-3 who presents for repeat section and tubal ligation at 39 weeks. Previous pregnancies have been complicated by depression, for which we plan to start Zoloft , and with her second section, she had a massive hemorrhage requiring a Bakri balloon. Her subsequent third section went forward without difficulty. The risks of the procedure were discussed with the patient including the risks of anesthesia, bleeding requiring transfusion, infection, poor wound healing, damage to surrounding structures including bowel, bladder, vessels, nerves and ureters with need for further surgery, hospitalization or intervention. We discussed that we would be prepared as always for a hemorrhage and we will carefully follow her. The other risks of surgery including heart attack, blood clot, stroke or were discussed with the patient. The patient desires permanent surgical sterilization. The other options for control were discussed with the patient including barriers, hormones, long-term reversible contraceptive options and vasectomy. The patient understands the risk of regret, failure and subsequent ectopic . She wishes to proceed with section and bilateral tubal sterilization. The surgery is planned for 03/03.
[2019-03-03] MEDS ORDERED: CITRIC ACID/SODIUM CITRATE 15 ML UDC PO SCH ×2 (06:00)
[2019-03-03] MEDS ORDERED: LACTATED RINGER'S 1,000 ML IV SCH ×4 (06:00→10:21)
[2019-03-03] MEDS ORDERED: CEFAZOLIN 2,000 MG in SYRINGE 0 ML IV SCH (06:00)
[2019-03-03 06:18] LABS: Basophils # (auto) 0.02 K/uL (0-0.2); Basophils % (auto) 0.3 %; Eosinophils # (auto) 0.13 K/uL (0-0.5); Eosinophils % (auto) 1.8 %; Hematocrit (blood only) 32.5 % (37-47); Hemoglobin 10.4 g/dL (12.0-16.0); Immature Granulocytes # (auto) 0.15 K/uL (0.00-0.02); Immature Granulocytes % (auto) 2.1 %; Lymphocytes # (auto) 1.54 K/uL (1.2-3.4); Lymphocytes % (auto) 21.2 %; Mean Corpuscular Hemoglobin 25.1 pg (25-34); Mean Corpuscular Volume 78.3 fL (80-100); Monocytes # (auto) 0.61 K/uL (0.11-0.59); Monocytes % (auto) 8.4 %; Neutrophils # (auto) 4.81 K/uL (1.4-6.5); Neutrophils % (auto) 66.2 %; Platelet Count 199 K/uL (130-400); RDW Coefficient of Variation 18.9 % (11.5-14.5); RDW Standard Deviation 53.4 fL (36.4-46.3); Red Blood Count 4.15 M/uL (4.2-5.4); White Blood Count 7.26 K/uL (4.8-10.8)
--- NOTE | 2019-03-03 07:12 | History & Physical Bridge Note ---
Date of Service March 03, 2019 History & Physical Bridge Note I have examined the patient, reviewed the History & Physical and in the interval since the performance of the History & Physical I have noted the following changes of clinical significance: no changes noted
[2019-03-03] MEDS ORDERED: MoRPHine SULFATE PF 1 MG/ML 10 ML AMP/VIAL ONE (07:34)
[2019-03-03] MEDS ORDERED: fentaNYL citrate 100 MCG/2 ML VIAL ONE (07:34)
[2019-03-03] MEDS ORDERED: OXYTOCIN 10 UNITS/ML VIAL ONE ×2 (07:48→08:01)
[2019-03-03] MEDS ORDERED: ONDANSETRON INJ 2 MG/ML 2 ML VIAL IV PRN (07:57)
[2019-03-03] MEDS ORDERED: LACTATED RINGER'S 500 ML IV PRN (07:57)
[2019-03-03] MEDS ORDERED: NALOXONE HCL 0.08 MG in SYRINGE 1.8 ML IV PRN (07:57)
[2019-03-03] MEDS ORDERED: HYDROmorphone INJ 0.5 MG/0.5 ML SYR IV PRN (07:57)
[2019-03-03] MEDS ORDERED: MoRPHine SULFATE PF 1 MG/ML 10 ML AMP/VIAL INT SPINAL ONE (07:57)
[2019-03-03] MEDS ORDERED: NALOXONE HCL 1 MG in SODIUM CHLORIDE 0.9% 1000ML 1,000 ML IV PRN (07:57)
[2019-03-03] MEDS ORDERED: ePHEDrine sulfate 50 MG/ML AMP IV PRN (07:57)
[2019-03-03] MEDS ORDERED: DiphenhydrAMINE HCL 50 MG/ML VIAL IV PRN (07:57)
[2019-03-03] MEDS ORDERED: NALOXONE HCL 0.4 MG/1 ML VIAL/CARP IV PRN (07:57)
[2019-03-03] MEDS ORDERED: NALBUPHINE HCL INJ 10 MG/ML AMP IV PRN (07:57)
[2019-03-03] MEDS ORDERED: DC INTRASPINAL MORPHINE SCH (08:00)
[2019-03-03] MEDS ORDERED: NO NARCOTICS OR SEDATIVES SCH (08:00)
[2019-03-03] MEDS ORDERED: SODIUM CHLORIDE 0.9% 1000ML 1,000 ML IV SCH (08:00)
[2019-03-03] MEDS ORDERED: CARBOPROST TROMETHAMINE 250 MCG/ML AMPUL ONE (08:03)
[2019-03-03] MEDS ORDERED: PHENYLEPHRINE 100MCG/ML 5ML SYR ONE (08:05)
--- NOTE | 2019-03-03 08:30 | Post Operative Brief Note ---
PG Immediate Post Op with CF Date of Surgery March 03, 2019 Pre & Post Diagnosis Operation Date: 03/03/19 07:30 Pre-Op Diagnosis: History of Section, Desires Sterilization Post-Op Diagnosis: History of Section, Desires Sterilization Procedure Operation Date: 03/03/19 07:30 Actual Procedures s Post Tubal Ligation by modified jaswant method - Teresa Girard MD, FACOG p Repeat lower transverse Section in LD; LIVE MALE AT 0759(Bilateral) - Teresa Girard MD, FACOG Surgeon Teresa Girard MD, FACOG [employer] Machine Dr. Estrella Estimated Blood Loss 700 Findings Consistent with Post-Op Diagnosis Specimens Specimen Description: PLACENTA (HOLD) CORD BLOOD ARTERIAL/VENOUS CORD GASES PORTIONS LEFT AND RIGHT FALLOPIAN TUBES Drains Mccullough Catheter
--- NOTE | 2019-03-03 09:55 | Anesthesiology Progress Note ---
Date of Service March 03, 2019 Anesthesia Post Procedure Vital Signs Vital Signs: Temp Pulse Resp BP Pulse Ox 03/03/19 09:52 84 95 03/03/19 09:50 80 93 03/03/19 09:48 74 112/63 03/03/19 09:47 75 95 03/03/19 09:42 76 94 03/03/19 09:38 78 115/61 03/03/19 09:37 81 94 03/03/19 09:36 79 94 03/03/19 09:32 73 93 03/03/19 09:30 71 94 03/03/19 09:28 93 H 114/56 L 03/03/19 09:27 81 97 03/03/19 09:22 75 97 03/03/19 09:18 77 109/51 L 03/03/19 09:17 80 97 03/03/19 09:12 78 96 03/03/19 09:08 85 114/49 L 03/03/19 09:07 89 18 97 03/03/19 09:02 82 97 03/03/19 08:57 79 18 104/55 L 96 03/03/19 08:52 85 96 03/03/19 08:47 85 18 104/57 L 96 03/03/19 08:42 89 96 03/03/19 08:37 36.4 C L 83 20 103/54 L 03/03/19 08:36 84 98 03/03/19 07:26 96 H 99 03/03/19 07:21 84 97 03/03/19 06:17 36.9 C 90 16 115/66 03/03/19 05:45 90 115/66 Transfer of Care Handoff Completed per policy Notes Mental Status: alert / awake / arousable Patient Amnestic to Procedure: Yes Nausea / Vomiting: adequately controlled Pain: adequately controlled Airway Patency, RR, SpO2: stable & adequate BP & HR: stable & adequate Hydration State: stable & adequate Neuraxial Anesthesia: was administered and sensory block is resolving Anesthetic Complications: no major complications apparent and Pt Satisfied with anesthetic care
--- NOTE | 2019-03-03 10:01 | Operative Report ---
DATE OF OPERATION: 03/03/2019 PREOPERATIVE DIAGNOSES: 1. Intrauterine at 39+ weeks. 2. History of previous section x3. 3. Desire for permanent surgical sterilization. 4. History of hemorrhage after second section requiring Bakri balloon. POSTOPERATIVE DIAGNOSES: 1. Intrauterine at 39+ weeks. 2. History of previous section x3. 3. Desire for permanent surgical sterilization. 4. History of hemorrhage after second section requiring Bakri balloon. 5. Breech presentation of fetus. PROCEDURES: 1. Repeat lower transverse section. 2. Modified bilateral [place] tubal ligation. SURGEON: Teresa Girard MD CELLULAR PHONE REPAIRER: Dr. Argenis Estrella DO and Rosmery Balderas, PGY-1. ESTIMATED BLOOD LOSS: 700 mL. URINE OUTPUT: 550 of clear yellow urine drained from the bladder at the end of the procedure. FLUIDS: 2200 mL of LR. INDICATIONS: The patient is a 33-year-old white female 4, para 3-0-0-3 with a at 39 weeks who presents for repeat section. This is her fourth . She also desires permanent surgical sterilization. FINDINGS: Slightly heart shaped uterus, normal tubes and ovaries noted bilaterally. Very thin fascia and thin rectovaginal rectus muscles, delivered a viable male in levi breech presentation. Apgars were 7 and 8. Weight is pending. COMPLICATIONS: None. DRAINS: Mccullough. DISPOSITION: To recovery room in stable condition. DESCRIPTION OF PROCEDURE: The patient was taken to the operating room where she was identified verbally and by bracelet. She was seated on the operating table where spinal anesthetic was placed by Dr. Jansen. She was then placed in dorsal supine position with a leftward tilt and a Mccullough catheter was placed. The patient was prepped and draped in normal sterile fashion. Her anesthetic was tested and found to be adequate. A time-out was held, identifying correct patient, procedure, positioning, equipment and preoperative antibiotic. There were no concerns. A Pfannenstiel skin incision was made with a knife over the previous Pfannenstiel skin incision and taken down to the underlying layer of fascia with the knife and Bovie electrocautery. The fascia was quite thin, but it was identified and opened with scissors bilaterally. The superior edge of the fascial incision was grasped, elevating underlying layer of rectus muscle was taken off bluntly and with scissors. The peritoneum was grasped bilaterally with snap. It was entered sharply with a knife. An oil operator's finger was placed into this and there were no adhesions noted. The inferior edge of the fascial incision was then grasped, elevating the underlying layer of rectus muscle was taken off bluntly and with scissors. The peritoneum was then taken down sharply and then was bluntly stretched with the oil operator's hands. The bladder blade was inserted. The vesicouterine peritoneum was identified and it was taken down sharply with scissors. A hysterotomy incision was made with a knife. It was stretched with the oil operator's fingers. Amniotomy was performed for clear fluid. The oil operator's hand was reached into the uterus and I removed what I thought was going to be a foot but turned out actually to be arm. The arm was then replaced into the uterus. The oil operator's hand was placed into the hysterotomy incision again until the buttocks were then lifted through the hysterotomy incision. The infant was then delivered gently using fundal pressure. There was a tight nuchal cord that was clamped and cut and then the was handed off to the waiting pediatricians for drying and attention. The placenta was manually extracted. The uterus was exteriorized and cleared of all clot and debris with moist and laparotomy sponges. The uterus was slightly heart shaped. The hysterotomy incision was repaired in one layer of running locked 0 Vicryl. Attention was then turned to the tubes where a bilateral modified [place] tubal ligation was performed. First starting on the right, the tube was grasped with a Bradley. It was suture ligated with 2-0 plain gut suture and then a free tie was placed below that. The tube was excised with scissors and bleeding edges were attended to with Bovie electrocautery. This was repeated in a very similar fashion on the left side. Hysterotomy incision was again inspected and found to be hemostatic. Given that she was not planning on childbearing again, the decision was made to repair in only one layer. The uterus was reanteriorized. The tubal sites were inspected and found to be intact. The hysterotomy incision was again inspected and found to be hemostatic. The peritoneum was reapproximated using 0 Vicryl. Again, the rectus muscles were quite thin, some bleeding edges were attended to with Bovie electrocautery. The fascia was reapproximated in the midline starting at the edges. The subcuticular tissue was irrigated. Bleeding was attended to with Bovie electrocautery and the skin was then closed with subcuticular stitch of 4-0 Vicryl. All sponge, lap and needle counts were correct x2. The patient tolerated the procedure well and was taken to recovery in stable condition. Uterine tone was attended to with dilute Pitocin and injecting Hemabate directly into the uterus. I attest to the content of the Intraoperative Record and any orders documented therein. Any exception s are noted below.
[2019-03-03] MEDS ORDERED: HYDROCORTISONE ACETATE 25 MG SUPP PR PRN (10:21)
[2019-03-03] MEDS ORDERED: SUPERCREAM 0.870% 15 GM JAR EXT PRN (10:21)
[2019-03-03] MEDS ORDERED: SENNA 8.6 MG TAB PO PRN (10:21)
[2019-03-03] MEDS ORDERED: MAGNESIUM HYDROXIDE SUSP 30 ML UDC PO PRN (10:21)
[2019-03-03] MEDS ORDERED: OXYTOCIN 30 UNITS in LACTATED RINGER'S 1,000 ML IV SCH (10:21)
[2019-03-03] MEDS ORDERED: DIPHTHERIA/TETANUS/PERTUSSIS 0.5 ML SYR/VIAL IM ONE (10:21)
[2019-03-03] MEDS ORDERED: BENZOCAINE 20% AER SPR 82.5 GM CAN EXT PRN (10:21)
[2019-03-03] MEDS ORDERED: PROMETHAZINE HCL 25 MG in SODIUM CHLORIDE 0.9% 50 ML IV PRN (10:21)
[2019-03-03] MEDS ORDERED: Nursing to Pharmacy Communication ONE (10:58)
[2019-03-03] MEDS: KETOROLAC 30 MG/ML VIAL IV PRN ×2 (11:15→20:07)
[2019-03-03] MEDS: SIMETHICONE 80 MG CHEW PO SCH ×3 (13:39→21:00)
[2019-03-03] MEDS: DOCUSATE SODIUM 100 MG CAP PO SCH (21:00)
[2019-03-04] MEDS ORDERED: DiphenhydrAMINE HCL 50 MG/ML VIAL IV PRN (01:58)
[2019-03-04] MEDS ORDERED: ONDANSETRON INJ 2 MG/ML 2 ML VIAL IV PRN (01:58)
[2019-03-04] MEDS ORDERED: KETOROLAC 30 MG/ML VIAL IV PRN (01:58)
[2019-03-04] MEDS: OXYCODONE/ACETAMINOPHEN 5mg/325mg TAB PO PRN ×4 (05:46→20:35)
[2019-03-04] MEDS: IBUPROFEN 600 MG TAB PO PRN ×4 (05:47→20:36)
--- NOTE | 2019-03-04 06:16 | Obstetrical Progress Note ---
Date of Service <Rosmery Gore DO - Last Filed: 03/04/19 06:50> March 04, 2019 Assessment & Plan <DO Abelardo Freeman Last Filed: 03/04/19 06:50> (1) Encounter for care and examination after delivery: 33 yo F POD #1, doing well and without complaints this morning. section - POD #1 - Feels well, ambulating well, voiding well. - Will continue routine care. - Following d/c will have f/u in 6 weeks. - Blood type A+, Rubella immune. Day #:: 1 Subjective <Rosmery Gore DO - Last Filed: 03/04/19 06:50> Jo-Ann is a 33 yo female ; POD # 1 following section delivery at 39w0d; doing well this AM; no abdominal cramping/pain; just had harden removed this AM, passing gas but no BM; tolerating meals overnight, has not ambulated yet due to recent harden removal. Some persistent spotting this morning but improved from yesterday. 24 Hour I/Os: Intake: 1560 mL Output: 5900 mL Review of Systems Constitutional: denies fever, chills, sweats, headache Respiratory: denies SOB, difficulty breathing Cardiac: denies CP, chest palpitations, chest pressure Breast: denies breast pain : denies dysuria Physical Exam <DO Abelardo Freeman Last Filed: 03/04/19 06:50> General: patient is alert and oriented, in NAD Cardiac: +S1/S2, no murmurs rubs or gallops Respiratory: lungs CTA b/l, anteriorly and posteriorly, no wheezes rales or rhonchi, no increased work of breathing, symmetric chest rise, no respiratory distress Abdomen: soft, NT, +bowel sounds Uterus: uterine fundus firm, palpable 2cm below the umbilicus. Incision intact, non-tender, non-erythematous, no weeping from incision site Lower Extremities: no LE edema or swelling, no deep calf pain, Neto's sign negative b/l Results & Data <DO Abelardo Freeman Last Filed: 03/04/19 06:50> Vital Signs (Past 12 Hours) Vital Signs Temp Pulse Resp BP Pulse Ox 03/04/19 04:49 36.7 C 70 18 106/70 03/04/19 02:42 18 99 03/04/19 01:17 20 99 03/04/19 00:00 36.6 C 73 18 100/63 99 03/03/19 23:00 18 99 03/03/19 22:06 20 99 03/03/19 21:00 18 99 03/03/19 20:00 36.7 C 65 18 104/70 99 03/03/19 18:27 36.5 C Laboratory Results Laboratory Results - last 24 hr 03/03/19 03/03/19 06:06 06:06 WBC 7.26 RBC 4.15 L Hgb 10.4 L Hct 32.5 L MCV 78.3 L MCH 25.1 MCHC 32.0 RDW Std Deviation 53.4 H RDW Coeff of Abdulaziz 18.9 H Plt Count 199 MPV 9.0 Immature Gran % (Auto) 2.1 Neut % (Auto) 66.2 Lymph % (Auto) 21.2 [place] % (Auto) 8.4 Eos % (Auto) 1.8 Baso % (Auto) 0.3 Immature Gran # (Auto) 0.15 H Neut # (Auto) 4.81 Lymph # (Auto) 1.54 [place] # (Auto) 0.61 H Eos # (Auto) 0.13 Baso # (Auto) 0.02 Blood Type A Positive Antibody Screen NEGATIVE Medications Administered Current Medications Benzocaine (Dermoplast Pain Relieving [place]) 1 appln EXT UD PRN PRN Reason: use on skin as needed Stop: 04/02/19 10:20 Bisacodyl (Dulcolax) 5 mg PO 2000 OLE Stop: 03/04/19 20:01 Bisacodyl (Dulcolax) 10 mg [place] PRN PRN PRN Reason: Constipation Stop: 04/04/19 08:33 Cocaine HCl (Supercream 0.870%) 1 gm EXT UD PRN PRN Reason: hemmorrhoidal inflammation Stop: 03/17/19 10:20 Diphenhydramine HCl (Benadryl) 25 mg IV QID PRN PRN Reason: Itching Stop: 04/03/19 01:57 Diphenhydramine HCl (Benadryl Capsule) 25 mg PO QID PRN PRN Reason: Itching Stop: 04/03/19 01:57 Docusate Sodium (Colace) 100 mg PO DAILY@08,21 [facility] Stop: 04/02/19 20:59 Last Admin: 03/03/19 21:00 Dose: 100 mg Documented by: Ferrous Sulfate (Feosol) 325 mg PO DAILY@08 [facility] Stop: 04/03/19 07:59 Hydrocortisone (Anusol Hc) 25 mg MO BID PRN PRN Reason: Hemorrhoids Stop: 04/02/19 10:20 Lactated Ringer's (Lr) 1,000 mls @ 125 mls/hr IV .Q8H OLE Stop: 04/02/19 10:20 Last Admin: 03/03/19 21:00 Dose: 125 mls/hr Documented by: Promethazine HCl 25 mg/ Sodium (Chloride) 51 mls @ 204 mls/hr IV Q4H PRN PRN Reason: Nausea And Vomiting Stop: 04/02/19 10:20 Ibuprofen (Motrin) 600 mg PO Q4H PRN PRN Reason: Pain Stop: 04/02/19 10:20 Last Admin: 03/04/19 05:47 Dose: 600 mg Documented by: Ketorolac Tromethamine (Toradol) 30 mg IV Q6H PRN PRN Reason: Pain Stop: 03/09/19 01:57 Magnesium Hydroxide (Milk Of Magnesia) 30 ml PO HS PRN PRN Reason: Constipation Stop: 04/02/19 10:20 Ondansetron HCl (Zofran) 4 mg IV Q4H PRN PRN Reason: Nausea And Vomiting Stop: 04/03/19 01:57 Oxycodone/Acetaminophen (Percocet 5mg/325mg) 1 - 2 tab PO Q4H PRN PRN Reason: Pain Stop: 03/18/19 01:57 Last Admin: 03/04/19 05:46 Dose: 1 tab Documented by: Prenat Multivit/Clinical Informatics Specialist/Iron/Folic Ac ( Vitamin) 1 tab PO DAILY@08 [facility] Stop: 04/03/19 07:59 Sennosides (Senokot) 17.2 mg PO HS PRN PRN Reason: Constipation Stop: 04/02/19 10:20 Simethicone (Mylicon) 80 mg PO DAILY@08,13,17,21 [facility] Stop: 04/02/19 12:59 Last Admin: 03/03/19 21:00 Dose: 80 mg Documented by: <Argenis Estrella DO - Last Filed: 03/04/19 08:29> Co-Signing Physician Notes Resident Physician Supervision Note: I was present with Dr. Balderas during the history and exam. I discussed the case with the resident and agree with the findings and plan as documented in the note. Any exceptions or clarifications are listed here: POD#1 doing well. Harden just removed with good urine output, has not yet ambulated. Routine postop care. No SCDs on this morning - discussed importance, instructed patient to wear these while in bed. Documented By: Argenis Estrella DO Resident Activity Tracking <Rosmery Gore DO - Last Filed: 03/04/19 06:50> Resident Involvement: Resident Care Provided Care Provided: Adult Hospital Medicine
[2019-03-04 06:43] LABS: Basophils # (auto) 0.01 K/uL (0-0.2); Basophils % (auto) 0.1 %; Eosinophils # (auto) 0.09 K/uL (0-0.5); Eosinophils % (auto) 0.9 %; Hematocrit (blood only) 31.5 % (37-47); Hemoglobin 10.1 g/dL (12.0-16.0); Immature Granulocytes # (auto) 0.05 K/uL (0.00-0.02); Immature Granulocytes % (auto) 0.5 %; Lymphocytes # (auto) 1.09 K/uL (1.2-3.4); Lymphocytes % (auto) 11.1 %; Mean Corpuscular Hemoglobin 25.5 pg (25-34); Mean Corpuscular Hgb Conc 32.1 g/dL (32-36); Mean Corpuscular Volume 79.5 fL (80-100); Mean Platelet Volume 9.5 fL (7.4-10.4); Monocytes # (auto) 0.85 K/uL (0.11-0.59); Monocytes % (auto) 8.6 %; Neutrophils # (auto) 7.76 K/uL (1.4-6.5); Neutrophils % (auto) 78.8 %; Platelet Count 201 K/uL (130-400); RDW Coefficient of Variation 19.2 % (11.5-14.5); RDW Standard Deviation 55.6 fL (36.4-46.3); Red Blood Count 3.96 M/uL (4.2-5.4); White Blood Count 9.85 K/uL (4.8-10.8)
[2019-03-04] MEDS: PRENATAL VITAMIN 1 TAB PO SCH (07:44)
[2019-03-04] MEDS: FERROUS SULFATE 325 MG TAB PO SCH (07:44)
[2019-03-04] MEDS: DOCUSATE SODIUM 100 MG CAP PO SCH ×2 (07:44→20:36)
[2019-03-04] MEDS: SIMETHICONE 80 MG CHEW PO SCH ×3 (07:44→20:35)
[2019-03-04] MEDS ORDERED: BISACODYL 5 MG TABEC PO SCH (20:00)
[2019-03-05] MEDS: OXYCODONE/ACETAMINOPHEN 5mg/325mg TAB PO PRN ×5 (00:20→21:23)
[2019-03-05] MEDS: IBUPROFEN 600 MG TAB PO PRN ×5 (00:21→21:23)
--- NOTE | 2019-03-05 06:00 | Obstetrical Progress Note ---
Date of Service <Rosmery Gore DO - Last Filed: 03/05/19 07:53> March 05, 2019 Assessment & Plan <DO Abelardo Freeman Last Filed: 03/05/19 07:53> (1) Encounter for care and examination after delivery: 33 yo F POD #2, doing well and without complaints this morning. section - POD #2 - Feels well, ambulating well, voiding well. - Will continue routine care. - Following d/c will have f/u in 6 weeks. - Blood type A+, Rubella immune. Subjective <Rosmery Gore DO - Last Filed: 03/05/19 07:53> Lilli is a 33 yo female ; POD # 2 following section delivery at 39w0d; doing well this AM; some right sided abdominal cramping overnight and bilateral thigh cramping; voiding well, passing gas but no BM; tolerating meals overnight, able to ambulate some within the room. Some persistent spotting this morning but improved from yesterday. 24 Hour I/Os: Intake: not recorded Output: 700mL Review of Systems Constitutional: denies fever, chills, sweats, headache Respiratory: denies SOB, difficulty breathing Cardiac: denies CP, chest palpitations, chest pressure Breast: denies breast pain : denies dysuria Physical Exam <DO Abelardo Freeman Last Filed: 03/05/19 07:53> General: patient is alert and oriented, in NAD Cardiac: +S1/S2, no murmurs rubs or gallops Respiratory: lungs CTA b/l, anteriorly and posteriorly, no wheezes rales or rhonchi, no increased work of breathing, symmetric chest rise, no respiratory distress Abdomen: soft, NT, +bowel sounds Uterus: uterine fundus firm, palpable 3cm below the umbilicus. Incision intact, non-tender, non-erythematous, no weeping from incision site Lower Extremities: no LE edema or swelling, no deep calf pain, Neto's sign negative b/l. Pain bilaterally in IT band area. Results & Data <DO Abelardo Freeman Last Filed: 03/05/19 07:53> Vital Signs (Past 12 Hours) Vital Signs Temp Pulse Resp BP 03/04/19 23:45 37 C 90 18 122/78 03/04/19 20:20 37.0 C 84 20 116/75 Laboratory Results Laboratory Results - last 24 hr 03/04/19 06:16 WBC 9.85 RBC 3.96 L Hgb 10.1 L Hct 31.5 L MCV 79.5 L MCH 25.5 MCHC 32.1 RDW Std Deviation 55.6 H RDW Coeff of Abdulaziz 19.2 H Plt Count 201 MPV 9.5 Immature Gran % (Auto) 0.5 Neut % (Auto) 78.8 Lymph % (Auto) 11.1 [place] % (Auto) 8.6 Eos % (Auto) 0.9 Baso % (Auto) 0.1 Immature Gran # (Auto) 0.05 H Neut # (Auto) 7.76 H Lymph # (Auto) 1.09 L [place] # (Auto) 0.85 H Eos # (Auto) 0.09 Baso # (Auto) 0.01 Medications Administered Current Medications Benzocaine (Dermoplast Pain Relieving [place]) 1 appln EXT UD PRN PRN Reason: use on skin as needed Stop: 04/02/19 10:20 Bisacodyl (Dulcolax) 10 mg [place] PRN PRN PRN Reason: Constipation Stop: 04/04/19 08:33 Cocaine HCl (Supercream 0.870%) 1 gm EXT UD PRN PRN Reason: hemmorrhoidal inflammation Stop: 03/17/19 10:20 Diphenhydramine HCl (Benadryl) 25 mg IV QID PRN PRN Reason: Itching Stop: 04/03/19 01:57 Diphenhydramine HCl (Benadryl Capsule) 25 mg PO QID PRN PRN Reason: Itching Stop: 04/03/19 01:57 Docusate Sodium (Colace) 100 mg PO DAILY@08, [facility] Stop: 04/02/19 20:59 Last Admin: 03/04/19 20:36 Dose: 100 mg Documented by: Ferrous Sulfate (Feosol) 325 mg PO DAILY@08 [facility] Stop: 04/03/19 07:59 Last Admin: 03/04/19 07:44 Dose: 325 mg Documented by: Hydrocortisone (Anusol Hc) 25 mg [place] BID PRN PRN Reason: Hemorrhoids Stop: 04/02/19 10:20 Lactated Ringer's (Lr) 1,000 mls @ 125 mls/hr IV .Q8H OLE Stop: 04/02/19 10:20 Last Admin: 03/03/19 21:00 Dose: 125 mls/hr Documented by: Promethazine HCl 25 mg/ Sodium (Chloride) 51 mls @ 204 mls/hr IV Q4H PRN PRN Reason: Nausea And Vomiting Stop: 04/02/19 10:20 Ibuprofen (Motrin) 600 mg PO Q4H PRN PRN Reason: Pain Stop: 04/02/19 10:20 Last Admin: 03/05/19 00:21 Dose: 600 mg Documented by: Ketorolac Tromethamine (Toradol) 30 mg IV Q6H PRN PRN Reason: Pain Stop: 03/09/19 01:57 Magnesium Hydroxide (Milk Of Magnesia) 30 ml PO HS PRN PRN Reason: Constipation Stop: 04/02/19 10:20 Ondansetron HCl (Zofran) 4 mg IV Q4H PRN PRN Reason: Nausea And Vomiting Stop: 04/03/19 01:57 Oxycodone/Acetaminophen (Percocet 5mg/325mg) 1 - 2 tab PO Q4H PRN PRN Reason: Pain Stop: 03/18/19 01:57 Last Admin: 03/05/19 00:20 Dose: 1 tab Documented by: Prenat Multivit/Ring Barker Operator/Iron/Folic Ac ( Vitamin) 1 tab PO DAILY@08 [facility] Stop: 04/03/19 07:59 Last Admin: 03/04/19 07:44 Dose: 1 tab Documented by: Sennosides (Senokot) 17.2 mg PO HS PRN PRN Reason: Constipation Stop: 04/02/19 10:20 Simethicone (Mylicon) 80 mg PO DAILY@08,13,17,21 [facility] Stop: 04/02/19 12:59 Last Admin: 03/04/19 20:35 Dose: 80 mg Documented by: <Inderjit Haas Jr, MD, FACOG - Last Filed: 03/05/19 08:12> Co-Signing Physician Notes Resident Physician Supervision Note: I was present with Dr. Balderas during the history and exam. I discussed the case with the resident and agree with the findings and plan as documented in the note. Any exceptions or clarifications are listed here: Patient tearful, PPD a problem in the past, will start on Zoloft Documented By: Inderjit Haas Jr, MD, FACOG Resident Activity Tracking <Rosmery Gore, - Last Filed: 03/05/19 07:53> Resident Involvement: Resident Care Provided Care Provided: Adult Hospital Medicine
[2019-03-05 07:20] LABS: Hematocrit (blood only) 31.7 % (37-47)
[2019-03-05] MEDS: PRENATAL VITAMIN 1 TAB PO SCH (08:23)
[2019-03-05] MEDS: DOCUSATE SODIUM 100 MG CAP PO SCH ×2 (08:23→20:11)
[2019-03-05] MEDS: FERROUS SULFATE 325 MG TAB PO SCH (08:23)
[2019-03-05] MEDS: SIMETHICONE 80 MG CHEW PO SCH ×4 (08:24→20:11)
[2019-03-05] MEDS ORDERED: BISACODYL 10 MG SUPP PR PRN (08:34)
[2019-03-05] MEDS: SERTRALINE HCL 50 MG TABLET PO SCH (08:37)
[2019-03-06] MEDS: OXYCODONE/ACETAMINOPHEN 5mg/325mg TAB PO PRN ×2 (04:59→08:41)
[2019-03-06] MEDS: IBUPROFEN 600 MG TAB PO PRN ×2 (05:00→08:40)
--- NOTE | 2019-03-06 06:21 | Obstetrical Progress Note ---
Date of Service <Rosmery Gore - Last Filed: 03/06/19 06:53> March 06, 2019 Assessment & Plan <Rosmery Gore - Last Filed: 03/06/19 06:53> (1) Encounter for care and examination after delivery: 33 yo F POD #3, doing well and without complaints this morning. Feeling better this AM following some rest and one on one time with her and new baby. section - POD #3 - Feels well, ambulating well, voiding well. - For discharge today. Will provide pt with 1 month Zoloft prescription and advise pt to schedule f/u with PCP for further treatment. - Following d/c will have f/u in 6 weeks. - Blood type A+, Rubella immune. Subjective <Rosmery Bao, DO - Last Filed: 03/06/19 06:53> Lilli is a 33 yo female ; POD # 3 following section delivery at 39w0d; doing well this AM; no abdominal cramping/pain; voiding well, passing gas but no BM; tolerating meals overnight, able to ambulate some within the room. Some persistent spotting this morning but improved from yesterday. Mood is better today following some one on one time with baby and and some better sleep overnight. 24 Hour I/Os: not recorded Review of Systems Constitutional: denies fever, chills, sweats, headache Respiratory: denies SOB, difficulty breathing Cardiac: denies CP, chest palpitations, chest pressure Breast: denies breast pain : denies dysuria Physical Exam <Rosmery Gore DO Abelardo Last Filed: 03/06/19 06:53> General: patient is alert and oriented, in NAD Cardiac: +S1/S2, no murmurs rubs or gallops Respiratory: lungs CTA b/l, anteriorly and posteriorly, no wheezes rales or rhonchi, no increased work of breathing, symmetric chest rise, no respiratory distress Abdomen: soft, NT, +bowel sounds Uterus: uterine fundus firm, palpable 3cm below the umbilicus. Incision intact, non-tender, non-erythematous, no weeping from incision site Lower Extremities: no LE edema or swelling, no deep calf pain, Neto's sign negative b/l Results & Data <Rosmery Bao, DO - Last Filed: 03/06/19 06:53> Vital Signs (Past 12 Hours) Vital Signs Temp Pulse Resp BP 03/05/19 23:45 36.7 C 93 H 18 129/83 03/05/19 20:20 36.5 C 74 18 125/77 Laboratory Results Laboratory Results - last 24 hr 03/05/19 06:50 Hgb 10.0 L Hct 31.7 L Medications Administered Current Medications Benzocaine (Dermoplast Pain Relieving [place]) 1 appln EXT UD PRN PRN Reason: use on skin as needed Stop: 04/02/19 10:20 Bisacodyl (Dulcolax) 10 mg [place] PRN PRN PRN Reason: Constipation Stop: 04/04/19 08:33 Cocaine HCl (Supercream 0.870%) 1 gm EXT UD PRN PRN Reason: hemmorrhoidal inflammation Stop: 03/17/19 10:20 Diphenhydramine HCl (Benadryl) 25 mg IV QID PRN PRN Reason: Itching Stop: 04/03/19 01:57 Diphenhydramine HCl (Benadryl Capsule) 25 mg PO QID PRN PRN Reason: Itching Stop: 04/03/19 01:57 Docusate Sodium (Colace) 100 mg PO DAILY@08,21 [facility] Stop: 04/02/19 20:59 Last Admin: 03/05/19 20:11 Dose: 100 mg Documented by: Ferrous Sulfate (Feosol) 325 mg PO DAILY@08 [facility] Stop: 04/03/19 07:59 Last Admin: 03/05/19 08:23 Dose: 325 mg Documented by: Hydrocortisone (Anusol Hc) 25 mg [place] BID PRN PRN Reason: Hemorrhoids Stop: 04/02/19 10:20 Lactated Ringer's (Lr) 1,000 mls @ 125 mls/hr IV .Q8H [facility] Stop: 04/02/19 10:20 Last Admin: 03/03/19 21:00 Dose: 125 mls/hr Documented by: Promethazine HCl 25 mg/ Sodium (Chloride) 51 mls @ 204 mls/hr IV Q4H PRN PRN Reason: Nausea And Vomiting Stop: 04/02/19 10:20 Ibuprofen (Motrin) 600 mg PO Q4H PRN PRN Reason: Pain Stop: 04/02/19 10:20 Last Admin: 03/06/19 05:00 Dose: 600 mg Documented by: Ketorolac Tromethamine (Toradol) 30 mg IV Q6H PRN PRN Reason: Pain Stop: 03/09/19 01:57 Magnesium Hydroxide (Milk Of Magnesia) 30 ml PO HS PRN PRN Reason: Constipation Stop: 04/02/19 10:20 Ondansetron HCl (Zofran) 4 mg IV Q4H PRN PRN Reason: Nausea And Vomiting Stop: 04/03/19 01:57 Oxycodone/Acetaminophen (Percocet 5mg/325mg) 1 - 2 tab PO Q4H PRN PRN Reason: Pain Stop: 03/18/19 01:57 Last Admin: 03/06/19 04:59 Dose: 1 tab Documented by: Prenat Multivit/[place]/Iron/Folic Ac ( Vitamin) 1 tab PO DAILY@08 [facility] Stop: 04/03/19 07:59 Last Admin: 03/05/19 08:23 Dose: 1 tab Documented by: Sennosides (Senokot) 17.2 mg PO HS PRN PRN Reason: Constipation Stop: 04/02/19 10:20 Sertraline HCl (Zoloft) 50 mg PO QAM [facility] Stop: 04/04/19 08:59 Last Admin: 03/05/19 08:37 Dose: 50 mg Documented by: Simethicone (Mylicon) 80 mg PO DAILY@08,13,17,21 [facility] Stop: 04/02/19 12:59 Last Admin: 03/05/19 20:11 Dose: 80 mg Documented by: <Brianne Payne MD, FACOG - Last Filed: 03/06/19 07:10> Co-Signing Physician Notes Resident Physician Supervision Note: I interviewed and examined the patient. Discussed with Dr. Balderas and agree with findings and plan as documented in the note. Any exceptions or clarifications are listed here: 2 week follow up for depression Documented By: Brianne Payne MD, FACOG Resident Activity Tracking <Rosmery Gore DO - Last Filed: 03/06/19 06:53> Resident Involvement: Resident Care Provided Care Provided: [facility] Medicine
[2019-03-06] MEDS: PRENATAL VITAMIN 1 TAB PO SCH (07:51)
[2019-03-06] MEDS: FERROUS SULFATE 325 MG TAB PO SCH (07:51)
[2019-03-06] MEDS: DOCUSATE SODIUM 100 MG CAP PO SCH (07:51)
[2019-03-06] MEDS: SIMETHICONE 80 MG CHEW PO SCH (07:52)
[2019-03-06] MEDS: SERTRALINE HCL 50 MG TABLET PO SCH (08:40)
--- NOTE | 2019-03-07 08:54 | Discharge Summary ---
ADMIT DIAGNOSES: 1. Intrauterine at 39+ weeks. 2. History of previous section x3. 3. History of hemorrhage in the past requiring Bakri balloon. 4. Desires permanent surgical sterilization. 5. History of depression. HISTORY OF PRESENT ILLNESS: Lilli is a 33-year-old white female, 4, para 3-0-0-3 with intrauterine at 39+ weeks, who presents for repeat section and tubal ligation. This has been complicated by a positive Lyme antibody for which she underwent treatment, diarrhea throughout the and seen GI. She has a history of depression for which she has been treated with Zoloft, but discontinued that at the beginning of the . There is a plan to resume that after delivery of the baby. 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 Her first was delivered in April of 2012 at 41 and 1/7 weeks for an 8-pound 11-ounce baby. It was a for intolerance of labor. The patient's second was performed in July of 2014, she had a breech presentation, so it was a repeat and delivered a 9-pound 13-ounce baby. The patient had severe hemorrhage following that delivery requiring Bakri balloon, but did well and was eventually discharged. Her third in August of 2017 with a repeat section for breech delivering an 8-pound 1-ounce baby. There were no issues with that . This was conceived on oral contraceptions. She desires permanent surgical sterilization after this . For the rest of patient's detailed history, please see her H and P. ASSESSMENT: This is a 33-year-old 4, para 3-0-0-3 who presents for repeat section and tubal ligation at 39 weeks. Previous pregnancies have been complicated by depression and her second , she had a massive hemorrhage requiring a Bakri balloon. HOSPITAL COURSE: The patient was admitted and underwent a repeat lower transverse section and modified bilateral [place] tubal ligation. Estimated blood loss 700 mL. Findings: Slightly heart-shaped uterus. Normal tubes and ovaries noted bilaterally. Very thin fascia and thin rectus muscle. Delivered a viable female in levi breech presentation. Apgars were 7 and 8. The patient's course was essentially uncomplicated. She does have some depression for which we restarted Zoloft and she will have close followup for this. She ambulated well, voided after the removal of her Mccullough catheter, ambulated without difficulty and had her pain well controlled on oral pain meds. She was discharged home on postoperative day #3 with Percocet for pain, Zoloft for her depression. A 2-week follow up in the office was provided with numbers to call if she felt her mood was worsening.
== END 2019-03-06 11:40 | disposition home or self-care (01) | DRG 785 ==
LOC: 4S1 05:39 → EDSTATUS 10:20 → 4S2 11:10
PROC: M.PPTLD (2019-03-03 07:30)